=== PATIENT | female | born 1980 | race Caucasian/White ===

== ENCOUNTER 2016-05-23 12:33 | Emergency (ER) ==
[2016-05-23 12:48] LABS: URINE CULTURE PL NEEDED? NO; URINE SOURCE CLEAN CATCH
[2016-05-23 12:54] LABS: BILIRUBIN URINE NEGATIVE (NEGATIVE); BLOOD URINE NEGATIVE (NEGATIVE); CLARITY CLEAR (CLEAR); COLOR YELLOW; GLUCOSE URINE NEGATIVE (NEGATIVE); LEUKOCYTES URINE NEGATIVE (NEGATIVE); NITRITE URINE NEGATIVE (NEGATIVE); PROTEIN URINE NEGATIVE (NEGATIVE); SP GRAVITY URINE 1.015; UROBILINOGEN URINE NORMAL
[2016-05-23 13:13] LABS: URINE EPITHELIAL CELLS <10 /HPF (<10)
[2016-05-23 16:39] VITALS: BP 111/78
[2016-05-23] MEDS ORDERED: ZITHROMAX PO ONE (16:58)
[2016-05-23] MEDS ORDERED: XYLOCAINE-MPF 1% INJ ONE (16:58)
[2016-05-23] MEDS ORDERED: ROCEPHIN IM ONE (16:58)
--- NOTE | 2016-05-23 17:00 | PROVIDER DOCUMENTATION ---
HPI-Female /OB/Breast <Caesar Ann - Last Filed: 05/23/16 16:59> - General Source: reports: patient - History of Present Illness-Female /OB Does patient report she is ?: No Location of complaint: reports: vaginal, urethral Radiation: reports: none Quality of Pain: reports: burning Severity in ED: reports: mild Onset/Duration: reports: unsure Timing: reports: still present, intermittent Context/Activities at Onset: reports: light activity Vaginal Symptoms: reports: discharge, foul odor Urinary Symptoms: reports: dysuria, frequency, polyuria Related Symptoms: reports: no symptoms Leakage of Fluid: none Sexual intercourse history: reports: Multiple Partners Contraception: reports: none Modifying Factors: improves with: nothing Associated Symptoms: reports: denies symptoms Similar Symptoms Previously?: Yes Recently seen or treated by another doctor?: No <Lizette Reed - Last Filed: 05/23/16 17:13> - General Chief Complaint: UTI Symptoms Stated Complaint: BACK PAIN/POSS KIDNEY INF Time Seen by Provider: 05/23/16 15:16 Allergies/Adverse Reactions: Patient Allergies Allergy/AdvReac Type Severity Reaction Status Date / Time Latex, Natural Rubber Allergy Mild ITCHING Verified 09/26/15 17:06 Home Medications: Home Medication List Medication Instructions Recorded Confirmed Last Taken Type Azithromycin [Zithromax Z-Alonso] 250 mg PO DIRECTED #1 pkg 09/26/15 Unknown Rx Metronidazole [Flagyl] 500 mg PO BID #20 tablet 09/26/15 Unknown Rx Metronidazole [Flagyl] 500 mg PO BID #14 tablet 05/23/16 Unknown Rx Phenazopyridine HCl [Pyridium] 100 mg PO TID #6 tablet 05/23/16 Unknown Rx - History of Present Illness-Female /OB Nature of Presenting Problem: Pt is 35 y/o F presents to the ED with UTI like symptoms. Pt states having dysuria, increased urination and vaginal discharged. Pt states she has been sexually active with multiple partners and has not used protection with any of them. Pt denies N/V/D. (Lizette Reed) Review of Systems - Adult - REVIEW OF SYSTEMS - ADULT Constitutional: denies: chills, fever Eyes: denies: blurred vision, double vision Ears, Nose, Mouth & Throat: denies: ear pain, nose pain, throat pain Cardiovascular: denies: chest pain, heart murmur, irregular heart rate Respiratory: denies: cough, shortness of breath, wheezing Gastrointestinal: denies: abdominal pain, diarrhea, nausea, vomiting Genitourinary: reports: dysuria, frequency, hematuria Musculoskeletal: denies: bone pain, joint pain, neck pain Integumentary: denies: hives, itching, rash Neurological: reports: no symptoms reported Psychiatric: reports: no symptoms reported Endocrine: reports: no symptoms reported Hematologic/Lymphatic: reports: no symptoms reported Allergic/Immunologic: reports: no symptoms reported All Other Systems: Reviewed and Negative <Lizette Reed - Last Filed: 05/23/16 17:13> Past History - Adult - PAST MEDICAL HISTORY-ADULT Major Childhood Illnesses: reports: denies history Cardiovascular: reports: denies history Respiratory: reports: denies history Gastrointestinal: reports: hepatitis (C) Obstetrical/Gynecological: reports: denies history Genitourinary: reports: denies history Musculoskeletal: reports: denies history Neurological: reports: denies history Endocrine/Immune: reports: denies history Other Conditions: reports: denies history - PRIOR SURGERIES/PROCEDURES Surgical/Procedure History: reports: BTL, tonsillectomy - IMMUNIZATION STATUS Childhood Immunizations: See Nurse Assessment Flu Vaccine: See Nurse Assessment - FAMILY HISTORY Family History: reviewed, not pertinent <Caesar Ann - Last Filed: 05/23/16 16:59> - PAST MEDICAL HISTORY-ADULT Review of Records: reports: Nursing Assessment Review, Medications Reviewed, Social history reviewed & non-contributory. Major Childhood Illnesses: reports: denies history Cardiovascular: reports: denies history Respiratory: reports: denies history Gastrointestinal: reports: denies history Obstetrical/Gynecological: reports: denies history Genitourinary: reports: denies history Musculoskeletal: reports: denies history Neurological: reports: denies history Endocrine/Immune: reports: denies history Other Conditions: reports: denies history - PRIOR SURGERIES/PROCEDURES Surgical/Procedure History: reports: BTL, tonsillectomy - IMMUNIZATION STATUS Childhood Immunizations: See Nurse Assessment Flu Vaccine: See Nurse Assessment - FAMILY HISTORY Family History: reviewed, not pertinent - SOCIAL HISTORY Smoking: cigarettes, less than 1 pack/day Provider spent 3-5 mins advising pt. on dangers of tobacco.: Discussed manners to quit use, and f/u contacts for add'l counseling. Substance Use: other (meth ) Alcohol Use Frequency: never Living Situation: family <Lizette Reed - Last Filed: 05/23/16 17:13> Physical Exam-General - PHYSICAL EXAM-ADULT Initial Vital Signs Reviewed: Yes - CONSTITUTIONAL General Appearance: appears well, alert, no apparent distress - EYES Eyes: PERRL/EOMI, pink conjunctivae, fundi clear, no AV nicking - HEAD, EARS, NOSE, MOUTH & THROAT HENMT: normocephalic/atraumatic, moist mucous membranes, normal ENT inspection, TMs normal, pharynx normal - NECK Neck: non-tender, full range of motion, supple, normal inspection - RESPIRATORY Respiratory: chest non-tender, lungs clear, normal breath sounds, no pleuratic chest pain, no respiratory distress, no accessory muscle use - CARDIOVASCULAR Cardiovascular: normal peripheral pulses, regular rate, rhythm, no edema, no gallop, no JVD, no murmur - GASTROINTESTINAL (ABDOMEN) Abdominal Exam: normal bowel sounds, non tender, soft, no organomegaly, no pulsatile mass - GENITOURINARY Female Genitalia/Pelvic Exam: speculum exam normal, discharge (white milky discharge). negative: active bleeding, blood Rectal Exam: deferred - LYMPHATIC Lymphatic: no adenopathy - MUSCULOSKELETAL Back Exam: normal inspection, no CVA tenderness, no vertebral tenderness Extremity: normal range of motion, non-tender, normal gait, normal inspection, no pedal edema, no calf tenderness, normal capillary refill - SKIN Integumentary: normal color, normal turgor, warm/dry - NEUROLOGIC Neurologic: grossly normal - PSYCHIATRIC Psych/Mental Status: normal mood/affect, oriented x 3 <Lizette Reed - Last Filed: 05/23/16 17:13> Progress <Caesar Ann - Last Filed: 05/23/16 16:59> <Lizette Reed - Last Filed: 05/23/16 17:13> - PLAN OF CARE/RESULTS Progress/Plan/Lab Results: Laboratory Tests 05/23/16 05/23/16 12:42 12:47 Urine Source CLEAN CATCH Urine Color YELLOW Urine Clarity CLEAR Urine pH 7.0 Ur Specific [place] 1.015 Urine Protein NEGATIVE Urine Ketones NEGATIVE Urine Blood NEGATIVE Urine Nitrite NEGATIVE Urine Bilirubin NEGATIVE Urine Urobilinogen NORMAL Urine Microscopic RBC Not Reportable Urine WBC NEGATIVE Ur Epithelial Cells <10 Urine Glucose NEGATIVE Urine Test NEGATIVE Orders Category Date Time Status Pelvic set up DIRECTED Care 05/23/16 15:33 Active GRAM STAIN [DIREX] Stat Lab 05/23/16 16:37 Ordered TEST-URINE [PREG] Stat Lab 05/23/16 16:[address] W/POSS RFLX CULT [URINALYSIS] Stat Lab 05/23/16 12:42 Com[address] DRUG SCREEN PL Stat Lab 05/23/16 16:19 Ordered WET PREP [RM] Stat Lab 05/23/16 16:37 Ordered Azithromycin [Zithromax] Med 05/23/16 16:58 Discontinued 1,000 mg PO NOW ONE CefTRIAXONE [Rocephin] Med 05/23/16 16:58 Discontinued 250 mg IM NOW ONE Lidocaine 1% Pf [Xylocaine-Mpf 1%] Med 05/23/16 16:58 Discontinued 5 ml INJ NOW ONE Vital Signs - 24 hr 05/23/16 05/23/16 12:36 16:39 Temperature 98.2 F Pulse Rate 93 H 91 H Respiratory 18 18 Rate Blood Pressure 135/85 111/78 O2 Sat by Pulse 100 99 Oximetry (Lizette Reed) Departure - Departure Time of Disposition Order: 16:59 Certified Medical Emergency: Emergent <Caesar Ann - Last Filed: 05/23/16 16:59> - Departure Time of Disposition Order: 17:13 Certified Medical Emergency: Emergent <Lizette Reed - Last Filed: 05/23/16 17:13> - Departure DIAGNOSIS: Bacterial vaginal infection, Dysuria Disposition: HOME 01 Condition: Good Additional Instructions: Take medication as prescribed. No sex for 1 week. Always practice safe sex. Follow up with an MAKING DEPARTMENT PREPARER or the [facility]. ED Follow Up Instructions: You have been treated by a care provider in the Emergency Department. These instructions are being provided to you so you can have an understanding of how to care for yourself upon discharge. Upon discharge from the Emergency Department, you are responsible for making arrangements for follow-up care by a physician of your choice. Take all prescribed medications as directed. Return to the Emergency Department immediately for any new or worsening symptoms. You may call the Physician Referral phone number at [phone] to obtain a list of Physicians who are taking new patients. Prescriptions: Metronidazole [Flagyl] 500 mg PO BID #14 tablet Phenazopyridine HCl [Pyridium] 100 mg PO TID #6 tablet Referrals: None,PCP [Primary Care Provider] - Crow Centeno MD [STAFF PHYSICIAN] - Attestation - Physician/ CHRISTINE Attestation Patient care was provided by Advanced Practice Provider:: Yes Advanced Practice Provider:: Caesar Ann Advanced Practice Provider documentation review:: The Mid-level provider documentation, treatment plan and medical decision making was reviewed by the physician who agrees with all treatment and medical decision making by the MLP. <Caesar Ann - Last Filed: 05/23/16 16:59> - Scribe Verification/Attestation Scribe:: Lizette Reed Acting as Scribe for:: Caesar Ann Scribe documention review:: This chart was documented by a scribe and accurately reflects the service the provider performed and the decisions made by the provider. <Lizette Reed - Last Filed: 05/23/16 17:13> Physician Attestation
[2016-05-23 18:35] LABS: UR AMPHETAMINES QUAL PRESUMPTIVE POSITIVE (NONE DETECT); UR BARBITUATES QUAL NONE DETECTED (NONE DETECT); UR BENZODIAZEPIN QUAL PRESUMPTIVE POSITIVE (NONE DETECT); UR COCAINE QUAL NONE DETECTED (NONE DETECT); UR MDMA QUAL NONE DETECTED (NONE DETECT)
[2016-05-23 18:36] LABS: UR CANNABINOIDS QUAL NONE DETECTED (NONE DETECT); UR METHADONE QUAL NONE DETECTED (NONE DETECT); UR METHAMPHETAMINE QUAL PRESUMPTIVE POSITIVE (NONE DETECT); UR OPIATES QUAL NONE DETECTED (NONE DETECT); UR OXYCODONE QUAL NONE DETECTED (NONE DETECT); UR PCP QUAL NONE DETECTED (NONE DETECT); UR TCA QUAL NONE DETECTED (NONE DETECT)
== END 2016-05-23 17:40 | disposition home or self-care (01) ==
LOC: P.ED 12:33
DX: N76.0 Acute vaginitis (principal); B96.89 Other specified bacterial agents as the cause of diseases classified elsewhere; R30.0 Dysuria; N89.8 Other specified noninflammatory disorders of vagina; R35.0 Frequency of micturition; R31.9 Hematuria, unspecified; R35.8 Other polyuria; M54.9 Dorsalgia, unspecified; B19.20 Unspecified viral hepatitis C without hepatic coma; F17.210 Nicotine dependence, cigarettes, uncomplicated; Z71.6 Tobacco abuse counseling
CPT/HCPCS: 80305; 81001; 81025; 87205; 87210; 96372; J0696